=== PATIENT | male | born 1975 | race Caucasian/White ===

== ENCOUNTER 2023-11-01 14:33 | Emergency (ER) | payer OTHER, SELFPAY ==
[2023-11-01 14:38] VITALS: BP 144/84; PULSE 83; TEMP 36.4; O2SAT 98; BMI 29.0
--- NOTE | 2023-11-01 14:48 | CT_ITS ---
The [address] [address] Patient Name: CHETAN LANIER MRN: [id number] date: 1975 Sex: M Assigned Patient Location: ER Current Patient Location: [facility] Accession/Order Number: [id number] Exam Date: 11/01/2023 14:53 Report Date: 11/01/2023 15:30 At the request of: FREDERICK KISER Procedure: CT foot LT wo con CT foot LT wo con: 11/01/2023 2:53 PM EDT HISTORY: Left hip pain after a fall off of a ladder landing onto the foot. Inability to bear weight. COMPARISON: None. TECHNIQUE: Multiple contiguous axial CT images of the left foot and ankle were obtained without contrast. Sagittal and coronal reformatted images were made. Dose reduction techniques were achieved by using automated exposure control and/or adjustment of mA and/or kV according to patient size and/or use of iterative reconstruction technique. 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 There is an acute, severely comminuted fracture of the majority of the calcaneus. This involves the body of the calcaneus and extends into the posterior subtalar joint. There is depression of the articular surface of the posterior facet of the calcaneus in the region of the posterior subtalar joint of 4 mm. There is also extension of this fracture into the articular surface of the calcaneocuboid joint, but the fracture is not significantly displaced in this region. There is no significant decrease of Boehler's angle. No other fracture or dislocation is seen. There is no evidence of tendon entrapment within the fracture of the calcaneus. There is soft tissue swelling adjacent to the lateral malleolus. There is moderate lateral subluxation of the peroneal tendons from the retromalleolar groove seen on the axial images. CT/CT foot LT wo con IMPRESSION: 1. Acute, severely comminuted fracture of the majority of the calcaneus with intra-articular extension into the posterior subtalar joint and the calcaneocuboid joint as described above. There is no evidence of tendon entrapment within this fracture. 2. There is soft tissue swelling adjacent to the lateral malleolus and there is moderate lateral subluxation of the peroneal tendons from the retromalleolar groove. These findings suggest the possibility of a tear of the superior peroneal retinaculum. Electronically authenticated by: CECILIO TA Date: 11/01/2023 15:30
--- NOTE | 2023-11-01 14:48 | ED_ITS ---
HPI HPI - Extremity Injury (Lower) General Chief Complaint: Extremity Injury, Lower Stated Complaint: LOWER EXTREMITY INJURY LEFT Time Seen by Provider: 11/01/23 14:34 Source: patient Mode of arrival: walk-in Limitations: no limitations History of Present Illness HPI Narrative: Patient is a 48-year-old male who presents to the emergency department for the evaluation of left heel pain after falling off of a ladder approximately 5 feet. He states he was on the ladder when he missed his step and landed on his left heel, he states he tucked and rolled to the side. He denies head injury, loss of consciousness, neck pain or back pain. He has not been able to bear weight on the left heel since falling but has no other areas of pain. No medications taken prior to arrival. Related Data Previous Rx's ?Medication ?Instructions ?Recorded hydrocodone 5 mg-acetaminophen 325 1 tab PO Q6H PRN pain 4 days #15 11/01/23 mg tablet tabs ketorolac 10 mg tablet 10 mg PO TID PRN pain #10 tabs 11/01/23 ondansetron 4 mg disintegrating 4 mg PO Q6H PRN nausea and 11/01/23 tablet vomiting #12 tabs Allergies Allergy/AdvReac Type Severity Reaction Status Date / Time Iodinated Contrast Media Allergy Severe Hives Verified 11/01/23 14:38 Opioid HPI Opioid Management Most Recent Pain and Opioid Data: Last Pain Scale 8 11/01/23 15:09 Last MAR Pain Assessment 11/01/23 15:08 Review of Systems ROS Constitutional Denies: fever or chills Ears, nose, mouth, and throat Denies: throat pain or nasal congestion Respiratory Denies: shortness of breath Gastrointestinal Denies: nausea or vomiting Musculoskeletal Reports: extremity pain; Denies: back pain or neck pain Integumentary/Breast Denies: rash Endocrine Denies: excessive urination Hematologic/Lymphatic Denies: easy bruising or easy bleeding Exam Narrative Exam Narrative: Gen.: Awake, alert, in no distress Head: Normocephalic, atraumatic ENT: Moist mucous membranes, No evidence of head injury, C-spine is nontender Respiratory: No respiratory distress Back: No bony point tenderness of the T-spine or L-spine Extremities: Moves extremities equally, No bony tenderness of the left knee, left tibia. No bony tenderness of the medial or lateral malleolus of the left ankle. Left heel is mildly edematous and diffusely tender. 2+ left DP pulse with no distal foot pain. Psych: Normal mood and affect Neuro: No focal neuro deficit Skin: Warm, dry, intact Constitutional Vital Signs, click to edit/add: Last Vital Signs Temp 97.6 F 11/01/23 14:38 Pulse 83 11/01/23 14:38 Resp 18 11/01/23 14:38 BP 144/84 H 11/01/23 14:38 Pulse Ox 98 11/01/23 14:38 O2 Del Method Room Air 11/01/23 14:38 Course Vital Signs Vital signs: Vital Signs Temperature 97.6 F 11/01/23 14:38 Pulse Rate 83 11/01/23 14:38 Respiratory Rate 18 11/01/23 14:38 Blood Pressure 144/84 H 11/01/23 14:38 Pulse Oximetry 98 11/01/23 14:38 Oxygen Delivery Method Room Air 11/01/23 14:38 Temperature 97.6 F 11/01/23 14:38 Pulse Rate 83 11/01/23 14:38 Respiratory Rate 18 11/01/23 14:38 Blood Pressure 144/84 H 11/01/23 14:38 Pulse Oximetry 98 11/01/23 14:38 Oxygen Delivery Method Room Air 11/01/23 14:38 MDM - Extremity Injury (Lower) MDM Narrative Medical decision making narrative: CT of the left foot shows patient has a severely comminuted left calcaneal fracture. He is neurovascularly intact with no distal foot pain, no ankle pain, no back pain. He has no other associated injuries. He was given Toradol, he requested no narcotics at this time as his pain is only moderate. I discussed the case with Dr. Hollingsworth for podiatry. Patient was placed in a short posterior splint and remains neurovascularly intact. Rest, ice, elevate. Strict nonweightbearing through the weekend and follow-up with Podiatry on Saturday. Return to the ER if symptoms change or worsen. Rm Cyr, Toradol given for home. Medical Records Attestation: I reviewed the patient's medical records. Imaging Data CT foot: Attestation: I have reviewed the pertinent imaging results. Radiologist's impression: ITS Impressions Foot CT 11/01/23 14:48 IMPRESSION: 1. Acute, severely comminuted fracture of the majority of the calcaneus with intra-articular extension into the posterior subtalar joint and the calcaneocuboid joint as described above. There is no evidence of tendon entrapment within this fracture. 2. There is soft tissue swelling adjacent to the lateral malleolus and there is moderate lateral subluxation of the peroneal tendons from the retromalleolar groove. These findings suggest the possibility of a tear of the superior peroneal retinaculum. Electronically authenticated by: CECILIO TA Date: 11/01/2023 15:30 Discharge Plan Discharge Stand Alone Forms: Portal Instructions Chief Complaint: Extremity Injury, Lower Clinical Impression: Closed fracture of left calcaneus Patient Disposition: Home, Self-Care Time of Disposition Decision: 15:52 Condition: Good Prescriptions / Home Meds: New hydrocodone-acetaminophen 5-325 mg tablet 1 tab PO Q6H PRN (Reason: pain) 4 Days Qty: 15 0RF Rx Instructions: DX: S92.0092A ketorolac 10 mg tablet 10 mg PO TID PRN (Reason: pain) Qty: 10 0RF ondansetron 4 mg tablet,disintegrating 4 mg PO Q6H PRN (Reason: nausea and vomiting) Qty: 12 0RF Print Language: Anguillan Instructions: Calcaneal Fracture (ED) Additional Instructions: Call Dr. Ramirez's office on Saturday to be scheduled for Saturday. Please do not bear any weight on the left foot. Ice and elevate. Referrals: REED WEISS [Primary Care Provider] - 1 week Rafael Ramirez DPM [Physician] - 11/05/23
[2023-11-01] MEDS: KETOROLAC TROMETHAMINE 10 MG TABLET PO (15:08)
== END 2023-11-01 16:17 | disposition home or self-care (01) ==
PROVIDERS: Emergency Provider Emergency Medicine; PCP Family Medicine
DX: S92.062A Displaced intraarticular fracture of left calcaneus, initial encounter for closed fracture (principal); W11.XXXA Fall on and from ladder, initial encounter
CPT/HCPCS: 29515; 73700; 99284

== ENCOUNTER 2023-11-05 08:16 | Outpatient (OUT) | payer OTHER, SELFPAY ==
--- NOTE | 2023-11-05 | XR_ITS ---
The [address] [address] Patient Name: CHETAN LANIER MRN: [id number] date: 1975 Sex: M Assigned Patient Location: Current Patient Location: Accession/Order Number: [id number] Exam Date: 11/05/2023 08:20 Report Date: 11/06/2023 09:16 At the request of: NKECHI APARICIO Procedure: XR calcaneus LT min 2V PROCEDURE: XR calcaneus LT min 2V HISTORY: LEFT CALCANEUS PAIN COMPARISON: CT foot left 11/01/2023 FINDINGS: BONES:Comminuted fracture of mid body and posterior aspect of calcaneus without significant displacement. SOFT TISSUES:Mild/moderate soft tissue swelling. EFFUSION:None visible. OTHER: Negative. XR/XR calcaneus LT min 2V IMPRESSION: 1. Nondisplaced to minimally displaced comminuted acute fractures of the calcaneus. These are better seen and foot described on the 11/01/2023 CT left foot study. Electronically authenticated by: NOY CORONA Date: 11/06/2023 09:16
== END 2023-11-05 08:17 | disposition home or self-care (01) ==
LOC: EC 08:16
PROVIDERS: PCP Family Medicine; Visit Provider Physician Assistant
DX: S92.002A Unspecified fracture of left calcaneus, initial encounter for closed fracture (principal)
CPT/HCPCS: 73650

== ENCOUNTER 2023-11-19 10:03 | Outpatient (OUT) | payer OTHER, SELFPAY ==
--- NOTE | 2023-11-19 | XR_ITS ---
The [address] [address] Patient Name: CHETAN LANIER MRN: [id number] date: 1975 Sex: M Assigned Patient Location: Current Patient Location: Accession/Order Number: [id number] Exam Date: 11/19/2023 10:20 Report Date: 11/20/2023 10:38 At the request of: CHETAN LI Procedure: XR foot LT min 3V PROCEDURE: XR foot LT min 3V HISTORY: LEFT FOOT PAIN COMPARISON: XR calcaneus left 11/05/2023 FINDINGS: BONES:Stable, relatively normal alignment of the calcaneal fracture with increased sclerosis compatible with changes of bone healing. SOFT TISSUES:No visible soft tissue swelling. EFFUSION:None visible. OTHER: Negative. XR/XR foot LT min 3V IMPRESSION: 1. Stable alignment and ongoing bone healing of prior calcaneal fracture. Electronically authenticated by: NOY CORONA Date: 11/20/2023 10:38
--- OUTSIDE RECORDS SUMMARY | 2023-11-19 10:16 | XMS_ITS ---
Patient Summarization (C-CDA 2.1 CCD) Created on: November 19, 2023 CHETAN LANIER : 1975 Sex: Male Author Organization Sample organization Care Team Providers Care Radiation Oncology Nurse Name Role Phone ELISABETH HERRERA Attending Unavailab ELISABETH Cantu Attending Unavailab ELISABETH Cantu Attending Unavailab ELISABETH Cantu Referring Unavailab le Encounters Encounter Date Encounter Type Care Provider Facility Start: 10-24-2023 End: 10-24-2023 ambulatory ELISABETH HERRERA Not Available Start: 10-15-2023 End: 10-15-2023 ambulatory ELISABETH HERRERA Not Available Start: 10-08-2023 End: 10-08-2023 ambulatory ELISABETH HERRERA Not Available Payers Date Payer Category Payer Private Health Insurance [id number] 1975 Unknown [id number] 2.16.84 [id number] 1975 Unknown [id number] 2.16.84 [id number] 1975 Unknown [id number] 2.16.84 [id number] 1975 Unknown [id number] 2.16.84 [id number] Results Test Name Value Interpretation Reference Range Facil ity XR LUMBAR SPINE 4+ VIEWS WIT H FLEXION EXTENSIONon 10-24-2023 XR LUMBAR SPINE 4+ VIEWS WITH FLEXION EXTENSION FINDINGS: Mild to moderate mid lumbar levoscoliosis. Moderate to severe asymmetric disc space loss greatest involvement concavity curvature right L3-4, diffusely L4-5 and L5-S1. SI joints are normal. Mild sclerosis involves posterior elements of the mid and distal lumbar spine however, no spondylolysis or spondylolisthesis is seen. No acute fracture is identified. Soft tissues are relatively unremarkable. Flexion Genta: Normal vertebral body alignment, no instability in the anterior posterior dimension. (Grade 1 leftward lateral listhesis L4 upon L5 seen on the PA view. IMPRESSION: 1. Scoliosis, mid/distal lumbar arthritis, possible multilevel stenosis. 2. No instability with flexion and extension maneuvers. TRANSCRIBED BY: ELECTRONICALLY SIGNED BY: Edmundo Segura MD Normal Not Available Summary Purpose Family History No Family History Records Found Advance Directives No Advanced Directives Records Found Additional Source Comments (unrecognized sect ion and content) No Status Records Found INFORMATION SOURCE (unrecogn ized section and content) DATE CREATED AUTHOR 10/28/2023 [facility] EPIC FOR RECORDS PERTAINING TO PATIENTS WHO ARE OR HAVE BEEN ENROLLED IN A CHEMICAL DEPENDENCY/SUBSTANCEABUSE PROGRAM, SOME INFORMATION MAY BE OMITTED. This clinical summary was aggregated from multiple sources. Caution should be exercised in using it in the provision of clinical care. This summary normalizes information from multiple sources, and as a consequence, information in this document may materially change the coding, format and clinical context of patient data. In addition, data may be omitted in some cases. CLINICAL DECISIONS SHOULD BE BASED ON THE PRIMARY CLINICAL RECORDS. [facility] [employer] provides no warranty or guarantee of the accuracy or completeness of information in this document.
== END 2023-11-19 10:04 | disposition home or self-care (01) ==
LOC: EC 10:03
PROVIDERS: PCP Family Medicine; Visit Provider Podiatrist Foot & Ankle Surgery
DX: S92.012D Displaced fracture of body of left calcaneus, subsequent encounter for fracture with routine healing (principal)
CPT/HCPCS: 73630

== ENCOUNTER 2023-12-03 10:29 | Outpatient (OUT) | payer OTHER, SELFPAY ==
--- NOTE | 2023-12-03 | XR_ITS ---
The [address] [address] Patient Name: CHETAN LANIER MRN: [id number] date: 1975 Sex: M Assigned Patient Location: Current Patient Location: Accession/Order Number: [id number] Exam Date: 12/03/2023 10:30 Report Date: 12/04/2023 08:24 At the request of: CHETAN LI Procedure: XR foot LT min 3V PROCEDURE: XR foot LT min 3V HISTORY: LEFT FOOT PAIN COMPARISON: XR foot left 11/19/2023 FINDINGS: BONES:Nondisplaced anterior calcaneal fracture with slight increased density. No new fracture or dislocation. Unremarkable midfoot and forefoot. SOFT TISSUES:No visible soft tissue swelling. EFFUSION:None visible. OTHER: Negative. XR/XR foot LT min 3V IMPRESSION: 1. Grossly stable nondisplaced anterior calcaneal fracture. 2. No new findings. Electronically authenticated by: NOY CORONA Date: 12/04/2023 08:24
--- OUTSIDE RECORDS SUMMARY | 2023-12-03 10:40 | XMS_ITS | CCD ---
Author Organization [facility] Care Team Providers Care Biological Science Technician Fish Name Role Phone ELISABETH HERRERA Attending Unavailab le ELISABETH HERRERA Attending Unavailab ELISABETH Cantu Attending Unavailab ELISABETH Cantu Referring Unavailab le Results Test Name Value Interpretation Reference Range [...] BY: Edmundo Segura MD Normal Not Available Encounters Encounter Date Encounter Type Care Provider Facility Start: 10-24-2023 End: 10-24-2023 ambulatory ELISABETH A [place] Not Available Start: 10-15-2023 End: 10-15-2023 ambulatory ELISABETH A [place] Not Available Start: 10-08-2023 End: 10-08-2023 ambulatory ELISABETH A [place] Not Available Payers Date Payer Category Payer Private Health Insurance [id number] 1975 Unknown [id number] 2.16.84 [id number] 1975 Unknown [id number] 2.16.84 [id number] 1975 Unknown [id number] 2.16.84 [id number] 1975 Unknown [id number] 2.16.84 [id number] Summary Purpose Family History No Family History Records Found Advance Directives No Advanced Directives Records Found Additional Source Comments (unrecognized sect ion and content) No Status Records Found INFORMATION SOURCE (unrecogn ized section and content) DATE CREATED AUTHOR 10/28/2023 [facility] Specialists [facility] FOR RECORDS PERTAINING TO PATIENTS WHO ARE [...] BE BASED ON THE PRIMARY CLINICAL RECORDS. [facility] [employer] [facility]. provides no warranty or guarantee of the accuracy or completeness of information in this document.
== END 2023-12-03 10:30 | disposition home or self-care (01) ==
PROVIDERS: PCP Family Medicine; Visit Provider Podiatrist Foot & Ankle Surgery
DX: S92.012D Displaced fracture of body of left calcaneus, subsequent encounter for fracture with routine healing (principal)
CPT/HCPCS: 73630

== ENCOUNTER 2023-12-31 08:40 | Outpatient (OUT) | payer OTHER, SELFPAY ==
--- NOTE | 2023-12-31 | XR_ITS ---
The [address] [address] Patient Name: CHETAN LANIER MRN: [id number] date: 1975 Sex: M Assigned Patient Location: Current Patient Location: Accession/Order Number: [id number] Exam Date: 12/31/2023 08:48 Report Date: 01/02/2024 06:04 At the request of: CHETAN LI Procedure: XR foot LT min 3V PROCEDURE: XR foot LT min 3V HISTORY: LEFT FOOT PAIN COMPARISON: XR foot left 12/03/2023 FINDINGS: BONES:Sclerosis of calcaneus and increased density of the visible fracture line. SOFT TISSUES:No visible soft tissue swelling. EFFUSION:None visible. OTHER: Negative. XR/XR foot LT min 3V IMPRESSION: 1. Stable alignment and ongoing bone healing of prior calcaneal fracture. Electronically authenticated by: NOY CORONA Date: 01/02/2024 06:04
--- OUTSIDE RECORDS SUMMARY | 2023-12-31 08:54 | XMS_ITS | CCD ---
Author Organization [facility] Care Team Providers Care Auto Damage Estimator Name Role Phone ELISABETH HERRERA Attending Unavailab ELISABETH Cantu Attending Unavailab ELISABETH Cantu Referring Unavailab ELISABETH Cantu Attending Unavailab ELISABETH Cantu Attending Unavailab emma Results Test Name Value Interpretation Reference Range [...] Date Encounter Type Care Provider Facility Start: 12-16-2023 End: 12-16-2023 ambulatory ELISABETH A [place] Not Available Start: 10-24-2023 End: 10-24-2023 ambulatory ELISABETH A [place] Not Available Start: 10-15-2023 End: 10-15-2023 ambulatory ELISABETH A [place] Not Available Start: 10-08-2023 End: 10-08-2023 ambulatory ELISABETH A [place] Not Available Payers Date Payer Category Payer Private Health Insurance [id number] 1975 Unknown [id number] 2.16.84 [id number] 1975 Unknown [id number] 2.16.84 [id number] 1975 Unknown [id number] 2.16.84 [id number] 1975 Unknown [id number] 2.16.84 [id number] 1975 Unknown [id number] 2.16.84 [id number] Summary Purpose Family History No Family History Records Found Advance Directives No Advanced Directives Records Found Additional Source Comments (unrecognized sect ion and content) No Status Records Found INFORMATION SOURCE (unrecogn ized section and content) DATE CREATED AUTHOR 12/18/2023 [facility] Special[facility] EPIC FOR RECORDS PERTAINING TO PATIENTS [...] BE BASED ON THE PRIMARY CLINICAL RECORDS. [facility] [employer] [facility]. provides no warranty or guarantee of the accuracy or completeness of information in this document.
== END 2023-12-31 08:41 | disposition home or self-care (01) ==
LOC: EC 08:40
PROVIDERS: PCP Family Medicine; Visit Provider Podiatrist Foot & Ankle Surgery
DX: M79.672 Pain in left foot (principal); S92.002D Unspecified fracture of left calcaneus, subsequent encounter for fracture with routine healing
CPT/HCPCS: 73630

== ENCOUNTER 2024-01-22 08:53 | Outpatient (OUT) | payer OTHER, SELFPAY ==
--- NOTE | 2024-01-22 | XR_ITS ---
The [address] [address] Patient Name: CHETAN LANIER MRN: [id number] date: 1975 Sex: M Assigned Patient Location: Current Patient Location: Accession/Order Number: [id number] Exam Date: 01/22/2024 08:57 Report Date: 01/23/2024 06:07 At the request of: CHETAN LI Procedure: XR calcaneus LT min 2V PROCEDURE: XR calcaneus LT min 2V HISTORY: LEFT CALCANEUS PAIN COMPARISON: XR calcaneus left 11/05/2023, XR foot left 12/31/2023 FINDINGS: BONES:Stable alignment and increasing sclerosis within anterior and mid calcaneus compatible with ongoing bone healing. SOFT TISSUES:No visible soft tissue swelling. EFFUSION:None visible. OTHER: Negative. XR/XR calcaneus LT min 2V IMPRESSION: 1. Ongoing bone healing of prior calcaneal fracture. Electronically authenticated by: NOY CORONA Date: 01/23/2024 06:07
== END 2024-01-22 08:54 | disposition home or self-care (01) ==
LOC: EC 08:54
PROVIDERS: PCP Family Medicine; Visit Provider Podiatrist Foot & Ankle Surgery
DX: M79.672 Pain in left foot (principal); S92.002D Unspecified fracture of left calcaneus, subsequent encounter for fracture with routine healing
CPT/HCPCS: 73650

== ENCOUNTER 2024-02-18 08:54 | Outpatient (OUT) | payer OTHER, SELFPAY ==
--- NOTE | 2024-02-18 | XR_ITS ---
[address] [address] Patient Name: CHETAN LANIER MRN: [id number] date: 1975 Sex: M Assigned Patient Location: Current Patient Location: Accession/Order Number: [id number] Exam Date: 02/18/2024 08:55 Report Date: 02/18/2024 10:24 At the request of: CHETAN LI Procedure: XR calcaneus LT min 2V PROCEDURE: XR calcaneus LT min 2V COMPARISON: 01/22/2024, 11/05/2023 HISTORY: LEFT CALCANEUS PAIN FINDINGS: BONES:Continued healing of a stable complex calcaneus fracture with the fracture planes less evident. No acute fracture or dislocation. SOFT TISSUES:Negative. No visible soft tissue swelling. EFFUSION:None visible. OTHER: Negative. XR/XR calcaneus LT min 2V IMPRESSION: Continued healing of a stable calcaneus fracture Electronically authenticated by: MARC LUCERO Date: 02/18/2024 10:24
--- OUTSIDE RECORDS SUMMARY | 2024-02-18 09:12 | XMS_ITS | CCD ---
Author Organization [facility] Care Team Providers Care Licensing Coordinator Name Role Phone ELISABETH HERRERA Attending Unavailab [...] Payer Category Payer Private Health Insurance [id number] 1975 Unknown [id number] 2.16.84 [id number] 1975 Unknown [id number] 2.16.84 [id number] 1975 Unknown [id number] 2.16.84 [id number] 1975 Unknown [id number] 2.16.84 [id number] 1975 Unknown [id number] 2.16.84 [id number] Summary Purpose Family History No Family History Records Found Advance Directives No Advanced Directives Records Found Additional Source Comments (unrecognized sect ion and content) No Status Records Found INFORMATION SOURCE (unrecogn ized section and content) DATE CREATED AUTHOR 12/18/2023 [facility] EPIC FOR RECORDS PERTAINING TO PATIENTS [...] BE BASED ON THE PRIMARY CLINICAL RECORDS. [facility] [employer]. provides no warranty or guarantee of the accuracy or completeness of information in this document.
== END 2024-02-18 08:55 | disposition home or self-care (01) ==
LOC: EC 08:54
PROVIDERS: PCP Family Medicine; Visit Provider Podiatrist Foot & Ankle Surgery
DX: M79.672 Pain in left foot (principal); S92.002D Unspecified fracture of left calcaneus, subsequent encounter for fracture with routine healing
CPT/HCPCS: 73650

== ENCOUNTER 2024-05-26 15:27 | Outpatient (OUT) | payer OTHER, SELFPAY ==
--- NOTE | 2024-05-26 15:30 | XR_ITS ---
The [address] [address] Patient Name: CHETAN LANIER MRN: [id number] date: 1975 Sex: M Assigned Patient Location: RAD Current Patient Location: RAD Accession/Order Number: [id number] Exam Date: 05/26/2024 15:35 Report Date: 05/26/2024 17:07 At the request of: CHETAN LI Procedure: XR calcaneus LT min 2V EXAM: XR calcaneus LT min 2V HISTORY: pain in left foot M79.672 . Follow-up study. COMPARISON: 02/18/2024 TECHNIQUE: 3 views of the calcaneus were obtained. FINDINGS: There is slight deformity with sclerotic changes present indicating healing of the previous identified fracture. No visible fracture lines are identified at this time. The joint spaces appear relatively intact throughout. XR/XR calcaneus LT min 2V IMPRESSION: Sclerotic changes in the calcaneus indicate ongoing osseous healing. No residual fracture lines are visible at this time. Electronically authenticated by: CHETAN REYNOSO Date: 05/26/2024 17:07
== END 2024-05-26 15:28 | disposition home or self-care (01) ==
LOC: RAD 15:27
PROVIDERS: PCP Family Medicine; Visit Provider Podiatrist Foot & Ankle Surgery
DX: M79.672 Pain in left foot (principal); S92.002D Unspecified fracture of left calcaneus, subsequent encounter for fracture with routine healing
CPT/HCPCS: 73650